=== PATIENT | female | born 1950 | race Two or more races ===

== ENCOUNTER 2019-08-02 12:54 | Outpatient (CLI) | payer MEDICARE, OTHER ==
--- NOTE | 2019-08-02 21:59 | Consultation ---
DATE OF CONSULTATION: 08/02/2019 CONSULTING PHYSICIAN: John Mckenna MD. CHIEF COMPLAINT: Referral for colonoscopy screening. PAST MEDICAL HISTORY: 1. Hypertension. 2. Gastritis. 3. Constipation. PAST SURGICAL HISTORY: Bladder drop and hysterectomy. MEDICATIONS: Omeprazole and Dulcolax. ALLERGIES: Codeine. FAMILY HISTORY: Noncontributory. SOCIAL HISTORY: The patient denies any tobacco, alcohol, or IV drug abuse. REVIEW OF SYSTEMS: Positive for GERD and constipation. PHYSICAL EXAMINATION: GENERAL: A well-developed female, in no acute distress. HEENT: Normocephalic and atraumatic. Sclerae anicteric. NECK: Supple. No evidence of obvious lymphadenopathy. CARDIOVASCULAR: Regular rate and rhythm. Plus S1, S2. LUNGS: Clear to auscultation bilaterally. ABDOMEN: Positive bowel sounds. Soft and nontender. No rebound. No guarding. No peritoneal sign. EXTREMITIES: No cyanosis. No clubbing. No edema. ASSESSMENT AND PLAN: This is a 68-year-old female who needs screening colonoscopy. The patient was given instruction for colonoscopy. The risks and benefits of procedure were explained to her. We are going to schedule her when authorization is obtained. John Mckenna M.D. DR: Arvind JOB#: [id number] CC:
[2019-08-03] MEDS ORDERED: OMEPRAZOLE40 M1 ORAL (15:35)
[2019-08-03] MEDS ORDERED: BISACODYL5 MG ORAL (15:35)
== END 2019-08-02 15:56 | disposition home or self-care (01) ==
LOC: PAN 12:54
DX: K21.9 Gastro-esophageal reflux disease without esophagitis (principal); K59.00 Constipation, unspecified; Z88.6 Allergy status to analgesic agent; I10 Essential (primary) hypertension; Z90.710 Acquired absence of both cervix and uterus; Z79.899 Other long term (current) drug therapy

== ENCOUNTER 2019-10-05 11:47 | Outpatient (CLI) | payer MEDICARE, OTHER ==
[~2019-10-05 11:47] MED LIST: BISACODYL5 MG ORAL; OMEPRAZOLE40 M1 ORAL
--- NOTE | 2019-10-05 18:15 | Progress Note ---
DATE: 10/05/2019 The patient had an endoscopy and colonoscopy, here for followup. SUBJECTIVE: No event. No abdominal pain. OBJECTIVE: VITAL SIGNS: Stable. Afebrile. HEENT: Normocephalic, atraumatic. Sclerae anicteric. NECK: Supple. No evidence of obvious lymphadenopathy. CARDIOVASCULAR: Regular rate and rhythm. Plus S1 and S2. LUNGS: Clear to auscultation bilaterally. ABDOMEN: Positive bowel sounds. Soft and nontender. No rebound. No guarding. No peritoneal sign. EXTREMITIES: No cyanosis. No clubbing. No edema. ASSESSMENT AND PLAN: Status post colonoscopy. FINDINGS: 1. Sigmoid diverticulosis. 2. Internal hemorrhoids. RECOMMENDATION: Repeat colonoscopy in 5 years. The patient at this time is asymptomatic. Come back to our office if there are any symptoms. Otherwise repeat colonoscopy in 5 years. John Mckenna M.D. DR: JULIO CESAR JOB#: [id number] CC:
== END 2019-10-05 15:42 | disposition home or self-care (01) ==
LOC: PAN 11:47
DX: K57.30 Diverticulosis of large intestine without perforation or abscess without bleeding (principal); K64.8 Other hemorrhoids
CPT/HCPCS: 99212